=== PATIENT | female | born 1965 | race Caucasian/White ===

== ENCOUNTER 2018-03-08 01:19 | Emergency (ER) | payer OTHER ==
[2018-03-08 01:37] VITALS: TEMP 96.9; O2SAT 99
--- NOTE | 2018-03-08 01:54 | ED.PDOC ---
History of Present Illness - General Chief Complaint: Problem Stated Complaint: urinary burning and freq Time Seen by Provider: 03/08/18 01:50 Source: patient - History of Present Illness Initial Comments: DYSURIA, MALAISE, URINARY FREQUENCY ONSET YESTERDAY. FEELS LIKE ANOTHER UTI Timing/Duration: this afternoon Quality: moderate, cramping Onset Location: suprapubic Radiation: none Improving Factors: nothing Worsening Factors: nothing Allergies/Adverse Reactions: Allergies Sulfa Antibiotics Allergy (Verified 03/08/18 01:33) Home Medications: Ambulatory Orders Cefuroxime Axetil [Ceftin] 500 mg PO Q12H #20 tablet 03/08/18 Phenazopyridine HCl [Pyridium] 100 mg PO TID #6 tab 03/08/18 Review of Systems - Review of Systems Constitutional: States: no symptoms reported EENTM: States: no symptoms reported Respiratory: States: no symptoms reported Cardiology: States: no symptoms reported Gastrointestinal/Abdominal: States: no symptoms reported Genitourinary: States: dysuria, frequency, pain Musculoskeletal: States: no symptoms reported Skin: States: no symptoms reported Neurological: States: no symptoms reported Endocrine: States: no symptoms reported Hematologic/Lymphatic: States: no symptoms reported Past Medical History (General) - Patient Medical History Hx of COPD: No Hx Cardiac Disorders: No Hx Diabetes: No - Vaccination History Hx Tetanus, Diphtheria Vaccination: No Hx Influenza Vaccination: No Hx Pneumococcal Vaccination: No Immunizations Up to Date: No - Social History Hx Alcohol Use: No Hx Substance Use: No - Female History Patient is a Female of Child Bearing Age (10 -59 yrs old): Yes Family Medical History - Family History Mother Family History: No Known Physical Exam - Physical Exam General Appearance: Alert, Well Developed, Well Groomed, Well Hydrated, Well Nourished Eyes, Ears, Nose, Throat Exam: PERRL/EOMI Neck: non-tender, full range of motion Cardiovascular/Respiratory: regular rate, rhythm, no M/R/G, normal peripheral pulses, no JVD Gastrointestinal/Abdominal: normal bowel sounds, non tender, soft, no organomegaly, no pulsatile mass Rectal Exam: deferred Back Exam: normal inspection Extremity: normal range of motion Neurologic: no motor/sensory deficits, alert Skin Exam: normal color Progress - Results/Orders Results/Orders: 20-30- WBC ON UA Departure - Departure Clinical Impression: Urinary tract infection Qualifiers: Urinary tract infection type: acute cystitis Hematuria presence: without hematuria Qualified Code(s): N30.00 - Acute cystitis without hematuria Time of Disposition: :18 Disposition: Discharge to Home or Self Care Condition: Good Departure Forms: ED Discharge - Pt. Copy, Patient Portal Self Enrollment Instructions: DI for Urinary Tract Infection (UTI) Prescriptions: Cefuroxime Axetil [Ceftin] 500 mg PO Q12H #20 tablet Phenazopyridine HCl [Pyridium] 100 mg PO TID #6 tab Home Medications: Ambulatory Orders Cefuroxime Axetil [Ceftin] 500 mg PO Q12H #20 tablet 03/08/18 Phenazopyridine HCl [Pyridium] 100 mg PO TID #6 tab 03/08/18
[2018-03-08] MEDS: cefTRIAXone SODIUM 1 GM VIAL IM ONE (02:24)
[2018-03-08] MEDS: PHENAZOPYRIDINE HCL 200 MG TAB PO ONE (02:24)
[2018-03-08 02:40] VITALS: BP 136/79
== END 2018-03-08 02:40 | disposition home or self-care (01) ==
LOC: ER 01:19
DX: N30.00 Acute cystitis without hematuria (principal); Z88.2 Allergy status to sulfonamides
CPT/HCPCS: 81001; 87086; 87088; 87186; J0696